=== PATIENT | male | born 1980 | race Caucasian/White ===

== ENCOUNTER 2020-01-18 03:20 | Emergency (ER) | payer BC ==
[~2020-01-18] VITALS: Ht 170.2 cm; Wt 65.0 kg
[2020-01-18 03:24] VITALS: BP 104/69
[2020-01-18] MEDS ORDERED: KETOROLAC 30 MG/1 ML ONE (03:31)
[2020-01-18] MEDS ORDERED: KETOROLAC 30 MG/1 ML IVPush ONE (04:00)
[2020-01-18] MEDS ORDERED: PLEASE ENTER ALLERGIES MC SCH (04:00)
--- NOTE | 2020-01-18 04:24 | NUR ---
ERP AT FOR US AT THIS TIME
--- NOTE | 2020-01-18 04:40 | NUR ---
PT AMB TO RESTROOM WITH STEADY GAIT NO ASSIST REQ
== END 2020-01-18 05:36 | disposition home or self-care (01) ==
LOC: ED 03:50
DX: R07.1 Chest pain on breathing (principal); R55 Syncope and collapse; R00.1 Bradycardia, unspecified
CPT/HCPCS: 71045; 93005; 96374; 99284; J1885

== ENCOUNTER → 2020-04-23 | Outpatient (CLI) | payer BC | END | disposition home or self-care (01) | LOC: CVU 10:54 | PROVIDERS: ATTEND Internal Medicine Cardiovascular Disease | DX: R07.89 Other chest pain (principal) | CPT/HCPCS: 93306; 93356 ==